=== PATIENT | male | born 1945 | race Caucasian/White ===

== ENCOUNTER 2023-05-12 09:52 | Emergency (ER) | payer MEDICARE, BC ==
[2023-05-12] MEDS ORDERED: Sodium Chloride 0.9% 10 ML Syringe FLUSH PRN (11:18)
[2023-05-12] MEDS: Sodium Chloride 0.9% 1,000 ML IV ONE (11:24)
[2023-05-12 11:25] LABS: BASOPHILS ABSOLUTE AUTO 0.01 K/uL (0.02-0.10); BASOPHILS PERCENT AUTO 0.1 % (0.0-0.5); EOSINOPHILS ABSOLUTE AUTO 0.01 K/uL (0.04-0.40); EOSINOPHILS PERCENT AUTO 0.1 % (1.0-5.0); HEMATOCRIT 49.3 % (40.0-54.0); HEMOGLOBIN 17.4 g/dL (13.0-18.0); LYMPHOCYTES ABSOLUTE AUTO 1.41 K/uL (1.50-4.00); LYMPHOCYTES PERCENT AUTO 15.9 % (20.0-40.0); MEAN CORPUSCULAR HEMOGLOBIN 30.6 pg (27.0-32.0); MEAN CORPUSCULAR HGB CONC 35.3 g/dL (31.0-35.0); MEAN CORPUSCULAR VOLUME 87 fL (76-96); MEAN PLATELET VOLUME 9.3 fL (6.0-10.0); MONOCYTES ABSOLUTE AUTO 0.76 K/uL (0.20-0.80); MONOCYTES PERCENT AUTO 8.5 % (3.0-10.0); NEUTROPHILS PERCENT AUTO 75.4 % (45.0-70.0); PLATELET COUNT,PLT 238 K/uL (150-400); RED BLOOD CELL COUNT 5.68 M/uL (4.50-6.50); RED CELL DISTRIBUTION WIDTH 12.1 % (11.0-16.0); WHITE BLOOD CELL COUNT,WBC 8.9 K/uL (4.0-11.0)
[2023-05-12 11:47] LABS: ALBUMIN 3.9 g/dL (3.4-5.0); BILIRUBIN TOTAL 1.3 mg/dL (0.0-1.0); BUN/CREATININE RATIO 16.8 (6-25); CREATININE 1.01 mg/dL (0.70-1.30); EST CRCL DRUG DOSING (CG) 64.25 mL/min; PROTEIN TOTAL,TP 7.7 g/dL (6.4-8.2)
[2023-05-12] MEDS: diazePAM 5 MG/ML MDV IV ONE (12:40)
[2023-05-12] MEDS: Ondansetron 4 MG Tab.DIS PO ONE (15:12)
[2023-05-13] MEDS: Ondansetron 4 MG Tab.DIS ONE (08:45)
== END 2023-05-12 17:10 | disposition home or self-care (01) ==
LOC: LB.ED 09:52
DX: H81.10 Benign paroxysmal vertigo, unspecified ear (principal)
CPT/HCPCS: 36415; 70450; 80053; 84443; 85025; 96361; 96374; 99284-25; J3360; J7030; Q0162